=== PATIENT | female | born 1955 | race Caucasian/White ===

== ENCOUNTER 2018-05-06 15:54 | Emergency (ER) | payer SELFPAY ==
[~2018-05-06] VITALS: Ht 167.6 cm; Wt 132.4 kg
[2018-05-06 16:25] VITALS: BP 148/78; Ht 167.6 cm; Wt 132.4 kg
[2018-05-06 17:38] LABS: BASOPHIL % 0.2 % (0-2); PLATELET COUNT 270 x10^3mcL (130-400); RED CELL DISTRIBUTION WIDTH 12.8 % (11.5-14.5)
[2018-05-06 17:48] LABS: CALCIUM 8.8 mg/dL (8.5-10.1); CARBON DIOXIDE 30.2 mmol/L (21-32); CHLORIDE SERUM 100 mmol/L (98-107); CREATININE SERUM 0.9 mg/dL (0.6-1.0); GFR1 > 60 mL/min; GLUCOSE SERUM 239 mg/dL (74-106); POTASSIUM SERUM 3.9 mmol/L (3.5-5.1); SODIUM SERUM 135 mmol/L (136-145)
[2018-05-06 17:53] LABS: ALBUMIN 3.4 g/dL (3.4-5.0); ALKALINE PHOSPHATASE 88 U/L (46-116); ALT/SGPT 20 U/L (14-59); AMYLASE 71 U/L (25-115); AST/SGOT 15 U/L (15-37); BILIRUBIN TOTAL 0.49 mg/dL (0.20-1.00); LIPASE 143 IU/L (73-393)
[2018-05-06 17:56] LABS: TOTAL PROTEIN, SERUM 8.4 g/dL (6.4-8.2)
== END 2018-05-06 21:19 | disposition home or self-care (01) ==
LOC: ED 15:54
PROVIDERS: Emergency Medicine
DX: R10.11 Right upper quadrant pain (principal); R35.0 Frequency of micturition; R05 Cough; R68.83 Chills (without fever)
CPT/HCPCS: 36415; J1885

== ENCOUNTER 2018-12-06 22:46 | Inpatient (IN) | payer MEDICAID ==
[~2018-12-06] VITALS: Ht 177.8 cm; Wt 135.2 kg
[2018-12-06 22:52] VITALS: Ht 177.8 cm; Wt 135.2 kg
--- NOTE | 2018-12-06 23:51 | NUR ---
PT BIB FAMILY FOR C/O COUGH/CONGESTION X 2 WEEKS. PT STATES SHE HAS A PRODUCTIVE COUGH WITH YELLOW PHLEGM. PT HAS CLEAR LUNG SOUNDS BILATERALLY. PT HAS EQUAL AND UNLABORED RESPIRATIONS. AXO X4. NAD AT THIS TIME. PT SPEAKING IN CLEAR AND FULL SENTENCES
[2018-12-07] VITALS (9 sets, daily range): BP systolic 124–188; BP diastolic 62–75
[2018-12-07 00:07] LABS: BASOPHIL % 0.4 % (0-2); PLATELET COUNT 281 x10^3mcL (130-400); RED CELL DISTRIBUTION WIDTH 12.9 % (11.5-14.5)
[2018-12-07 00:17] LABS: CALCIUM 8.9 mg/dL (8.5-10.1); CARBON DIOXIDE 29.2 mmol/L (21-32); CHLORIDE SERUM 105 mmol/L (98-107); CREATININE SERUM 0.9 mg/dL (0.6-1.0); GFR1 > 60 mL/min; GLUCOSE SERUM 245 mg/dL (74-106); POTASSIUM SERUM 3.5 mmol/L (3.5-5.1); SODIUM SERUM 143 mmol/L (136-145)
[2018-12-07 00:23] LABS: ALBUMIN 3.4 g/dL (3.4-5.0); ALKALINE PHOSPHATASE 93 U/L (46-116); ALT/SGPT 41 U/L (14-59); AST/SGOT 28 U/L (15-37); BILIRUBIN TOTAL 0.5 mg/dL (0.20-1.00); TOTAL PROTEIN, SERUM 7.5 g/dL (6.4-8.2)
--- NOTE | 2018-12-07 01:44 | NUR ---
ABOVE NOTE MADE BY ZEUS OTOOLE RN
--- NOTE | 2018-12-07 01:45 | NUR ---
PT NOW COMPLAINING OF A H/A. BP HIGH SEE VITALS. MD BARKER MADE AWARE. MD BARKER AT PT BEDSIDE TO DISCUSS POSSIBLE ADMISSION DUE TO PT NEW ONSET DIABETES AND HTN.
--- NOTE | 2018-12-07 02:12 | NUR ---
REPORT GIVEN TO MAYRA MAYO RN TO RESUME FURTHER CARE OF PT
--- NOTE | 2018-12-07 02:36 | NUR ---
REPORT GIVEN TO RUI ON MST FOR CONTINUATION OF CARE.
--- NOTE | 2018-12-07 03:20 | NUR ---
PT ADMITTED FOR CHIEF COMPLAINT COUGH AND SOB. AOX4. TELE #29, SA WITH BBB AND OCCASIONAL INVERTED T. DENIES CP. LUNGS CLEAR ON RA. BREATHING E/U. DENIES SOB. IV TO LAC, PATENT. ORIENTED TO ROOM. BED IN LOWEST POSITION, 2 SIDE RAILS UP, CALL LIGHT IN REACH. INSTRUCTED TO CALL FOR ASSISTANCE.
[2018-12-07 03:56] LABS: UA SPECIFIC GRAVITY 1.025 (1.005-1.035); microscopic required? YES; urine erythrocyte NEGATIVE (NEGATIVE)
--- NOTE | 2018-12-07 06:48 | NUR ---
NO ACUTE DISTRESS NOTED. NO ACUTE CHANGES. WILL ENDORSE TO ONCOMING RN.
[2018-12-07 06:55] LABS: CARBON DIOXIDE 26.2 mmol/L (21-32); CHLORIDE SERUM 106 mmol/L (98-107); CREATININE SERUM 0.8 mg/dL (0.6-1.0); GFR1 > 60 mL/min; GLUCOSE SERUM 249 mg/dL (74-106); MAGNESIUM 1.8 mg/dL (1.8-2.4); PHOSPHOROUS 3.1 mg/dL (2.5-4.9); POTASSIUM SERUM 4.2 mmol/L (3.5-5.1); SODIUM SERUM 143 mmol/L (136-145)
[2018-12-07 07:00] LABS: BASOPHIL % 0.3 % (0-2); PLATELET COUNT 253 x10^3mcL (130-400); RED CELL DISTRIBUTION WIDTH 12.6 % (11.5-14.5)
--- NOTE | 2018-12-07 07:25 | NUR ---
RECEIVED PT RESTING IN BED WITH EYES CLOSED. SLEEPING BUT EASILY AROUSABLE. BREATHING EVEN AND UNLABORED ON RA. NO SOB NOTED. IV TO LAC, NO REDNESS OR SWELLING. TELE #29. FAMILY AT BEDSIDE. BED IN LOW POSITION, CALL LIGHT WITHIN REACH. WILL CONTINUE TO MONITOR.
--- NOTE | 2018-12-07 07:40 | NUR ---
RECEIVED CALL FROM TELE REGARDING PT'S HR GOING DOWN TO 40'S. PT SLEEPING, EASILY AROUSED. VS STABLE. NO C/O CP OR PRESSURE. CALL LIGHT WITHIN REACH. WILL CONTINUE TO MONITOR.
--- NOTE | 2018-12-07 12:22 | NUR ---
PT SITTING UP ON THE EDGE OF THE BED. NO ACUTE DISTRESS. DENIES SOB. NO C/O CP OR PRESSURE. IV TO LAC, NO REDNESS OR SWELLING NOTED. CALL LIGHT WITHIN REACH. WILL CONTINUE TO MONITOR.
--- NOTE | 2018-12-07 12:54 | NUR ---
Discount pharmacy card and list to low cost medical clinics given to patient by Slick Bah.
--- NOTE | 2018-12-07 17:43 | NUR ---
PT SITTING UP IN BED EATING DINNER. NO ACUTE DISTRESS. RESP EVEN AND UNLABORED ON RA. DENIED SOB AFTER AMBULATING TO BATHROOM AND BACK TO BED WITHOUT ASSIST. IV TO LAC, NO REDNESS OR SWELLING NOTED. CALL LIGHT WITHIN REACH. WILL CONTINUE TO MONITOR.
--- NOTE | 2018-12-07 18:46 | NUR ---
PT RESTING IN BED. C/O SOB AFTER AMBULATING FROM BATHROOM TO BED. RT BENJA MADE AWARE OF PT'S REQUEST TO HAVE BREATHING TX. WILL CONTINUE TO MONITOR.
--- NOTE | 2018-12-07 19:47 | NUR ---
PT CURRENTLY RESTING IN BED, NO ACUTE DISTRESS. A/O X4. NO TELE, MED/SURG. DENIES CHEST PAIN. PULSES PALPABLE IN ALL EXTREMITIES, NO EDEMA NOTED. LUNG SOUNDS DIMINISHED IN BILATERAL BASES, PRODUCTIVE COUGH NOTED. DENIES SOB. BOWEL SOUNDS ACTIVE, LAST BM 12/06/18. VOIDING WELL. AMBULATORY. SKIN INTACT. IV PATENT AND INTACT. BED IN LOWEST POSITION, SIDE RAILS UP X2, CALL LIGHT WITHIN REACH. WILL CONTINUE TO MONITOR.
--- NOTE | 2018-12-08 00:36 | NUR ---
PT CURRENTLY RESTING IN BED, FAMILY AT BEDSIDE. PT C/O SOB, RT NOTIFIED FOR TREATMENT. WILL CONTINUE TO MONITOR.
[2018-12-08 05:25] VITALS: BP 153/70
--- NOTE | 2018-12-08 06:19 | NUR ---
PT SLEPT PERIODICALLY THROUGHOUT NIGHT, NO ACUTE DISTRESS. ALL NEEDS MET AND ATTENDED TO. NO SIGNIFICANT CHANGES. IV PATENT AND INTACT. BED IN LOWEST POSITION, SIDE RAILS UP X2, CALL LIGHT WITHIN REACH. WILL ENDORSE CARE TO ONCOMING NURSE.
[2018-12-08 08:05] VITALS: BP 135/78
--- NOTE | 2018-12-08 08:13 | NUR ---
AAO TIMES 4. NO TELE, MED SURG. LUNGS CTA BUL, SLIGHLTY DIMINISHED BASES. O2 SAT ON RA 94%. OBESE. BS'S ACTIVE TIMES 4. FERGUSON STRONG. IV SITE LAC PATENT, CDI. PERIPHERAL PULSES PALPABLE. TRACE EDEMA BLE. NO C/O PAIN. NO C/O SOB. COOPERATIVE AND PLEASANT. FAMILY AT BEDSIDE, SUPPORTIVE.
[2018-12-08 08:31] LABS: BASOPHIL % 0.1 % (0-2); PLATELET COUNT 290 x10^3mcL (130-400); RED CELL DISTRIBUTION WIDTH 12.7 % (11.5-14.5)
[2018-12-08 08:58] LABS: CALCIUM 9.7 mg/dL (8.5-10.1); CHLORIDE SERUM 101 mmol/L (98-107); CREATININE SERUM 0.9 mg/dL (0.6-1.0); GFR1 > 60 mL/min; GLUCOSE SERUM 324 mg/dL (74-106); POTASSIUM SERUM 4.1 mmol/L (3.5-5.1); SODIUM SERUM 138 mmol/L (136-145)
[2018-12-08 12:31] VITALS: BP 171/79
--- NOTE | 2018-12-08 12:34 | NUR ---
AT 1230 THE STORE ASSOCIATE NOTIFIED ME THAT HER BP IS 171/79. I GAVE APRESOLINE 25 MG PO ORDERED AT 1234. AT 1425 HER BP IS 139/64.
[2018-12-08 14:25] VITALS: BP 139/64
[2018-12-08 16:29] VITALS: BP 164/66
--- NOTE | 2018-12-08 18:04 | NUR ---
AAO TIMES 4. MED SURG PATIENT. NO C/O PAIN. NO SOB. IV SITE LAC PATENT, CDI. COOPERATIVE AND PLEASANT. I DID SOME TEACHING WITH DOING HER BLOOD SUGAR GLUCOSE CHECKS AT HOME. WATCHING TV, NO FAMILY PRESENT AT THIS TIME.
--- NOTE | 2018-12-08 20:00 | NUR ---
PT AAO X4 VERBALIZED NEEDS, DENIES HEADACHE OR DIZZINESS, NO DISTRESS OCC COUGHING, ENCOURAGED TO COUGH OUT PHLEGM TO COLLECT SPEC, LUNGS DIM @ THE BASES, RT PROT FOR TX, LAC IV ACCESS ON HEPLOCK FLUSHING WELL, DENIES PAIN, PT ON ATB IV AZITHROMYCIN NO ADV REACTION, ALSO ON SOLUMEDROL ORDERED, SHIFT ASSESSMENT DONE, ATTENDED NEEDS CALL LIGHT AT REACH, UPDATED TX PLAN WILL MONITOR.
[2018-12-08 20:45] VITALS: BP 184/91
--- NOTE | 2018-12-09 00:27 | NUR ---
PT AWAKE PLACING GAMES IN HER IPAD, DENIES PAIN, WITH OCC PROD COUGH, STILL NOT ABLE TO COLLECT SPUTUM SPEC, ENCOURAGED TO COUGH IT OUT IN THE SPEC CONTAINER PROVIDED, SOLUMEDROL IVP GIVEN SCHED, PT DENIES PAIN CONT TO MONITOR.
[2018-12-09 06:09] VITALS: BP 137/77
--- NOTE | 2018-12-09 06:24 | NUR ---
SLEEPING INTERMITTENT DURING THE SHIFT, BP RECHECKED 137/77, HR 77, DENIES PAIN, AZITHROMYCIN IV HANGED ORDERED, NO ADV REACTION, NO DISTRESS, NO WHEEZES, WITH OCC COUGHING, NOT PRODUCING PHLEGM, JUST SALIVA, UNABLE TO COLLECT SPEC, BS 302 MG/DL COVERED WITH 12 UNITS REG INSU/SS, WILL ENDORSE TO INCOMING SHIFT FOR F/U CARE.
[2018-12-09 06:29] LABS: CALCIUM 9.6 mg/dL (8.5-10.1); CARBON DIOXIDE 25.8 mmol/L (21-32); CHLORIDE SERUM 100 mmol/L (98-107); CREATININE SERUM 0.9 mg/dL (0.6-1.0); GFR1 > 60 mL/min; GLUCOSE SERUM 321 mg/dL (74-106); POTASSIUM SERUM 4.1 mmol/L (3.5-5.1); SODIUM SERUM 136 mmol/L (136-145)
[2018-12-09 06:30] LABS: PLATELET COUNT 285 x10^3mcL (130-400)
--- NOTE | 2018-12-09 07:00 | NUR ---
RECEIVED REPORT FROM CADE RN, PT IN NO ACUTE DISTRESS
--- NOTE | 2018-12-09 07:10 | NUR ---
PT IN BED, AXOX4, VERBAL, AFGHAN, ABLE TO MAKE NEEDS KNOWN, CALM AND COPPERATIVE TO CARE, RESP EVEN AND NON-LABLORED, COUGH, NO SOB, SPUTUM COLLECTED PER MD ORONA AND SENT TO LAB, AXOX4, MEDSURG, PALP PULSE, CAP REFIL < 2 SECS, TRACE EDEMA BLE, DIM BLL, RA, BS ACTIVE X 4, AMBULATORY, CONTINENT, DENIED PAIN/PRESSUREM DISCOMFORT, DENIED N/V/D, NO FACIAL DROOP/SLURRED SPEECH, IV PATENT AND NO INFILTRATION, PERRLA, NO REDNESS/DRAINAGE, ALL NEEDS MET AT THIS TIME, IN NO ACUTE RESP DISTRESS, CONTINUE TO MONITOR
[2018-12-09 07:23] LABS: BASOPHIL % 0 % (0-2)
--- NOTE | 2018-12-09 07:33 | NUR ---
RECEIVED LAB R/T WBC 12.8, TIP OUT WORKER ZEUS MORAN MADE AWARE, CHARGE NURSE SHAHEED MADE AWARE
[2018-12-09 09:22] VITALS: BP 160/65
--- NOTE | 2018-12-09 09:36 | NUR ---
PT IN NO ACUTE RESP DISTRESS, IN BED, AM MED GIVEN PER MD ORDER, TAKEN WELL, NO ASE NOTED AT THIS TIME, ALL NEEDS ADDRESSED, SAFETY PROTOCOL FOLLOWED, CONTINUE TO MONITOR
--- NOTE | 2018-12-09 11:12 | NUR ---
ASSISTED PT TO BATHROOM, VOID X 1, ASSISTED BACK TO BED, IN NO ACUTE RESP DISTRESS, SAFETY PROTOCOL FOLLOWED, CONTINUE TO TERRY
--- NOTE | 2018-12-09 11:45 | NUR ---
EDUCATION ABOUT DM, BS MONITOR AND S/S OF HYPERGLYCEMIA, HYPOGLYCERMIA GIVEN TO PT, VERBALLY UNDERSTANDING, ALL NEEDS ADDRESSED AT THIS TIME, CONTINUE TO MONITOR
--- NOTE | 2018-12-09 17:05 | NUR ---
PT RESTING IN BED W/ EYES CLOSED, IN NO APPARENT DISTRESS/PAIN/DISCOMFORT, BS CHECKED AND INSULIN GIVEN PER SLIDING SCALRE PER MD ORDER VIA EMAR, TAKEN WELL, NO ASE NOTED AT THIS TIME, PITCHER OF WATER REPLACED, ALL NEEDS ADDRESSED AT THIS TIME, WILL CONTINUE TO MONITOR
[2018-12-09 17:40] VITALS: BP 160/65
--- NOTE | 2018-12-09 18:01 | NUR ---
PT RESTING IN BED W/ EYES CLOSED, REPORT NO PAIN/DISCOMFORT/PRESSURE, REFUSED N/V/D/DIZZINESS, NO FACIAL DROOP/SLURRED SPEECH, RESP EVEN AND NON-LABORED, NO COUGH NOTED AT THIS TIME, ABD ROUND AND NON-TENDER TO TOUCH, REPORTED LAST DUSTIN 12/18 PM, ABLE TO MOVE ALL EXTREMITIES, CONTINENT, BRP, PALP PULSES, CAP REFIL < 3 SECS, IV PATENT AND NO INFILTRATION NOTED, ALL NEEDS ADDRESSED AT THIS TIME, SAFETY PROTOCOL FOLLOWED, WILL ENDORSE TO ONCOMINF RN
--- NOTE | 2018-12-09 19:34 | NUR ---
PT AAO X4 VERBALIZED NEEDS DENIES HEADACHE OR DIZZINESS NO DISTRESS WITH ON AND OFF COUGHING NON PRODUCTIVE, ENCOURAGED TO COUGH OUT TO COLLECT SPUTUM SPEC, LUNGS DIM AT THE BASES, DENIES PAIN, IV ACCESS LAC PATENT NON INFIL, REMAINED ON ATB IV NO ADV REACTION, AND ON SOLUMEDROL IV Q6 HRS, RT PROT FOR TX, CALL LIGHT AT REACH, SHIFT ASSESSMENT DONE, CONT TO MONITOR.
[2018-12-09 21:13] VITALS: BP 141/65
--- NOTE | 2018-12-09 23:50 | NUR ---
PT AWAKE WATCHING TV DENIES PAIN, NO DISTRESS, ADDRESSED NEEDS, CALL LIGHT AT REACH, MINIMIZED ROOM STIMULATION, CHECKED AT INTERVALS.
[2018-12-10 05:57] VITALS: BP 137/65
--- NOTE | 2018-12-10 06:20 | NUR ---
NO SIGNIFICANT CHANGE OF CONDITION SLEPT INTERMITTENT DURING THE SHIFT, AM ATB AZITHROMYCIN HANGED ORDERED, NO ADV REACTION, BS 215 MG/DL COVERED PER SLIDING SCALE, DENIES PAIN, WILL ENDORSE TO INCOMING SHIFT FOR F/U CARE.
[2018-12-10 06:43] LABS: BASOPHIL % 0.2 % (0-2); PLATELET COUNT 274 x10^3mcL (130-400); RED CELL DISTRIBUTION WIDTH 12.6 % (11.5-14.5)
[2018-12-10 07:08] LABS: CALCIUM 9.3 mg/dL (8.5-10.1); CARBON DIOXIDE 27.9 mmol/L (21-32); CHLORIDE SERUM 102 mmol/L (98-107); CREATININE SERUM 0.9 mg/dL (0.6-1.0); GFR1 > 60 mL/min; GLUCOSE SERUM 243 mg/dL (74-106); POTASSIUM SERUM 3.7 mmol/L (3.5-5.1); SODIUM SERUM 138 mmol/L (136-145)
--- NOTE | 2018-12-10 07:27 | NUR ---
PT SITTING AT SIDE OF BED. AA/OX4. NO COMPLAINT OF PAIN. DENIES SOB AT THIS TIME ON RA. RR EVEN/UNLABORED AT THIS TIME. NO S/S OF ACUTE DISTRESS. CALM/COOPERATIVE. IV WNL TO LAC, IV ANTIBIOTIC RUNNING. SITE WNL. FLUSHES WELL. INSTRUCTED TO USE CALL LIGHT TO CALL FOR ASSISTANCE PRN. VERBALIZED UNDERSTANDING. WILL CONT. TO MONITOR.
[2018-12-10 08:02] VITALS: BP 152/79
[2018-12-10 08:03] VITALS: BP 125/56
[2018-12-10] MEDS ORDERED: ZESTRIL20 MG PO (10:41)
[2018-12-10] MEDS ORDERED: NOR5 PO (10:41)
[2018-12-10] MEDS ORDERED: GLUCOCARD VITA1 EAC2 MC (10:42)
--- NOTE | 2018-12-10 10:50 | NUR ---
PT SITTING UP IN BED. AA/OX4. NO S/S OF ACUTE DISTRESS. DENIES PAIN. NO SOB ON ROOM AIR. CALM/COOPERATIVE. IV WNL, SALINE LOCKED. NO N/V. NO CHEST PAIN. MED-SURG. BED IN LOW POSITION. CALL LIGHT WITHIN REACH. WILL CONTINUE TO MONITOR.
[2018-12-10 11:48] VITALS: BP 156/59
[2018-12-10 12:41] VITALS: BP 156/59
[2018-12-10] MEDS ORDERED: GLUCOPHAGE500 MG PO (12:53)
--- NOTE | 2018-12-10 13:09 | NUR ---
C/O 5/10 ACHING HEADACHE, MEDICATED W/ TYLENOL 650 MG PO.
--- NOTE | 2018-12-10 13:10 | NUR ---
DISCHAREG INSTRUCTIONS GIVEN TO PT INCLUDING MEDICAL FOLLOW-UP W/ PCP. ADDITIONAL EDUCATIONAL MATERIALS REGARDING DIABETES AND NEW PRESCRIPTION GIVEN. PT VERBALIZES UNDERSTANDING. IV ON THE LAC REMOVED, CATHETER INTACT, NO S/S OF BLEEDING AND ERYTHEMA NOTED. ZHENG BAILEY TO WHEEL DOWN THE PT
== END 2018-12-10 13:21 | disposition home or self-care (01) | DRG 145 ==
LOC: ED 22:46 → DU 12-07 02:08 → MU 12-07 18:18
PROVIDERS: Emergency Medicine; Internal Medicine; ADMIT Internal Medicine
DX: J20.9 Acute bronchitis, unspecified (principal); E11.00 Type 2 diabetes mellitus with hyperosmolarity without nonketotic hyperglycemic-hyperosmolar coma (NKHHC); E66.2 Morbid (severe) obesity with alveolar hypoventilation; Z68.41 Body mass index [BMI] 40.0-44.9, adult; M94.0 Chondrocostal junction syndrome [Tietze]; I16.0 Hypertensive urgency; Z79.84 Long term (current) use of oral hypoglycemic drugs
CPT/HCPCS: 82962; G0378; J0456; J1815; J2920; J7030; J7050; J7613; J7620; J7644; Q0092